=== PATIENT | female | born 1945 | race Caucasian/White ===

== ENCOUNTER 2019-01-15 06:15 | Inpatient (IN) | payer MEDICARE, MEDICAID, SELFPAY ==
[2019-01-08 07:45] VITALS: BMI 24.6
[2019-01-15] VITALS (19 sets, daily range): BP systolic 100–170; BP diastolic 56–91; PULSE 75–101; RESP 11–20; TEMP 36.2–37.1; O2SAT 92–100; BMI 24.0
--- NOTE | 2019-01-15 | DI.RAD.S_ITS ---
PROCEDURE: XR LUMBAR SPINE 2-3V INDICATIONS: L2-3, L3-4 TLIF TECHNIQUE: 2 views of the lumbar spine were acquired. COMPARISON: [facility], , L-SPINE 2-3 VIEWS, 10/19/2017, 8:40. FINDINGS: Bones: 5 [id number] vertebrae are present. There is normal bony alignment maintained L. by further extension of previously present posterior spine fusion, previously crossing from L4-S1 and now crossing from L2-S1. Interbody cage disc prosthesis devices appear in normal position at L2-3, and L3-4 in addition to the previously present stable appearing disc prosthesis devices at L4-5 and L5-S1. No vertebral body compression fractures. No suspicious bony lesions. Soft tissues: Overlying bowel gas pattern is normal. No suspicious soft tissue calcifications. IMPRESSION: Normal alignment with posterior fusion having been expanded to encompass now L2-S1 with interbody disc cage prosthesis devices now extending from L2-3 through L5-S1. Dictated by: Molina Craft M.D. on 01/15/2019 at 12:53 Approved by: Molina Craft M.D. on 01/15/2019 at 12:56
[2019-01-15] MEDS: LACTATED RINGERS 1,000 ML 42 ML IV ×2 (07:15→09:47)
--- NOTE | 2019-01-15 07:41 | SUR.PREOP ---
Pt and daughter unsure of home medications, did not bring in any medication lists.
--- NOTE | 2019-01-15 07:43 | PM.PREOP ---
Pre-operative Note Interval Note History & Physical reviewed/Exam performed by Physician: Yes Changes to H&P: No
[2019-01-15] MEDS: CEFAZOLIN 2 GM/100 ML FROZ.PIGGY IV ×2 (07:54→15:55)
--- NOTE | 2019-01-15 08:23 | SUR.OPER ---
Prone on spine table, head in foam head support, padded chest and pelvic supports, gel pad at knees, lower legs supported by pillows; nipples, genitalia and toes free of pressure, arms secured on foam padded arm boards at <90 degrees abduction. Tape over blanket at thigh secured to table.
[2019-01-15] MEDS: BUPIVACAINE LIPOSOME 266 MG/20 ML VIAL INJ (08:30)
[2019-01-15] MEDS: BUPIVACAINE 0.25% MDV 30 ML INJ (08:32)
--- NOTE | 2019-01-15 08:33 | SUR.OPER ---
UPPER DENTURES IN LABELED CONTAINER TO PACU WITH PATIENT
--- NOTE | 2019-01-15 12:17 | P.OP_ITS ---
Operative Date/Time/Diagnoses Date of procedure: 01/15/19 Time of procedure: 08:08 Pre-op diagnosis: 1. L2-3, L3-4, L4-5, L5-S1 spinal stenosis 2. L2-3, L3-4, L4-5, L5-S1 spondylosis with radiculopathy 3. Hx of L4-5, L5-S1 fusion with hardware loosening Post-op diagnosis: same Procedure & Clinicians Procedure: 1. L2-3, L3-4 posterolateral and posterior interbody fusion 2. L2-3, L3-4 posterior interbody cage placement 3. L4-S1 posterior segmental instrumentation removal 4. L4-5, L5-S1 revision laminectomy with exploration of fusion 5. L2-3, L3-4, L4-5, L5-S1 posterior segmental instrumentation with pedicle screw placement 6. L4-5 posterolatearl fusion 7. [place] of bone marrow from iliac crest through a separate incision 8. Utilization of microsurgical technique and operating microscope Same procedure as scheduled: Yes Indications: Patient has been having chronic back pain and worsening lumbar radiculopathy. Patient had previous fusion with temporary relief of her symptoms and progressive worsening of her pain over the last 6 months. Patient responded well to injection with temporary pain relief in the area cephalad to the previous fusion. Patient failed multiple conservative management with worsening pain weakness and numbness in her lower extremity. Patient has been having difficulty performing activity of daily living. After discussing risks benefits of treatment options, patient elected proceed with surgery. Surgeon: Angie Bhatt Brand Marketing Manager: Gege Rose Click Yes if Unassisted: No Anesthesia Type: General Operative Notes Closure Type: primary Specimen(s): none sent Prosthetic devices, grafts, tissues, transplants, or devices: Globus Revolve screws, Rise cages Applied: catheter Estimated Blood Loss (mL): 150 Blood products transfused: none Procedure in detail: Patient was seen in the preoperative area. Risks and benefits of the surgery was discussed with the patient. Informed consent was obtained from the patient and placed in the chart. Surgical site was marked. Patient was taken to the operative room. General anesthesia was administered. Prophylactic antibiotic was given to the patient less than 30 min before the incision was made. Patient was placed into a prone position on the Rob table. Patient's back was then prepped and draped in the sterile fashion. Time- out was performed at this time. Using patient's previous scar incision was made over the L4-5 L5-S1 interval on the left side. Fascia was incised in line with skin incision. Patient's previously placed hardware over the L4-5 L5-S1 level was identified by dissecting down to the level the hardware using a Bovie and a Bustamante. The locking caps which was removed using globus screwdriver. The locking rubens was then removed from the tulips of the pedicle screws using a Lionel. The pedicle scr ews were then removed using the screwdriver. The left L4 pedicle screw was found to be loose. The Globus and MARS retractors was then placed into the wound and docked onto the L2 and L3 lamina using C-arm guidance. Using microsurgical technique and operating microscope a laminectomy facetectomy was performed by removing the L2 and L3 lamina and the L2-3 L3-4 facet. The disc space at L2-3 L3-4 level was identified next. And a total diskectomy was performed at L2-3 L3-4 level. The endplates were decorticated using a rasp and shaver. The total diskectomy and decortication was performed at L2-3 L3-4 level in order to to accomplish a L2-3 L3-4 fusion. The local bone from the laminectomy and facetectomy was saved for local bone grafting. After the total diskectomy and decortication was c ompleted, Globus viacell bone graft material was combined with local bone that was harvested earlier. At this time, a separate skin is incision was made over the iliac crest. A Jamshidi needle was inserted into the iliac crest through a separate skin incision. 5 cc of bone marrow aspiration was obtained through the separate skin incision using a Jamshidi needle from the iliac crest. The bone marrow aspiration was combined with local bone and the via cell bone grafting material. The bone grafting material was placed into the L2-3 L3-4 interbody space along with a expandable cage. The cage was expanded to its maximum height using the torque limiting screwdriver. At this time a mirror image incision was made on the right side. The fascia was incised in line with the skin incision. Patient's previously placed hardware on the right side was then removed in the same fashion as it was on the left side. The hardware was also found to have good purchase. The fusion mass on the right side was exposed by performing a right-sided hemilaminectomy at L4-5 L5-S1 level. The hemilaminectomy was performed using the Kerrison rongeur to undercut the lamina as well removing additional epidural scar tissue for purpose of decompressing the epidural space. The fusion mass was explored and was found have visible motion at L4-5 indicating pseudoarthrosis. The L5-S1 level was found to be solid without motion. Globus MARS retractor was inserted and docked onto the L2-3 L3-4 L4-5 posterolateral gutter. Using the power drill, posterior-lateral decortication was performed at L2-3 L3-4 L4-5 level until bleeding cortical bone was identified. The remaining bone grafting material was placed into the L2-3 L3-4 L4-5 posterior lateral gutter he order to accomplish posterolateral fusion at the L2-3 L3-4 L4-5 level. Using the double C-arm technique, pedicle screws were placed into the L2-L3-L4-L5 and S1 pedicles bilaterally. This was done by placing the Jamshidi needle into the pedicles, then placing the guidewires over the Jamshidi needle, and finally placing the cannulated screws over the guidewires bilaterally. After the pedicle screws were placed, 2 titanium rods was locked into the heads of the pedicle screws using locking caps and torque limiting screwdriver. After all the hardware was placed, and confirmed with AP and lateral C-arm imaging, the wound was then irrigated with sterile normal saline and packed with Ray-Freddie gauze for 3 min to accomplish hemostasis. After the gauze was removed the deep fascia was closed with #1 Vicryl suture. The subcutaneous layer was closed with 2-0 Vicryl. The skin was closed with skin robert. Patient tolerated the procedure well. There were no complications. Complications: none Condition: stable Disposition: PACU Plan for aftercare: Admit to inpatient hospital
[2019-01-15] MEDS: HYDROMORPHONE 2 MG INJ 0.5 MG IV ×4 (13:00→13:15)
--- NOTE | 2019-01-15 14:09 | SUR.PHASEI ---
1356: Pt brought up to the Acute Care Floor and an updated bedside report given to ZORAN Dueñas. Despite pain medications given in PACU, Pt still appears to be having surgical pain. Blood Sugar checked at 1337 and was 204. Pt's VS checked upon transfer to Acute Care Floor and Pt hemodynamically stable. Pt reports her daughter is here, belongings brought to Pt in Room 217 and dentures placed on the counter in room.
[2019-01-15] MEDS: HYDROMORPHONE 0.5 MG INJ IV ×2 (14:37→20:39)
[2019-01-15] MEDS: SODIUM CHLORIDE 0.9% 1,000 ML 100 ML IV (14:37)
--- NOTE | 2019-01-15 14:47 | PC.NURSE ---
Pt awake, restless moaning in pain, Flacc of 7, given 0.5mg ivp dilaudid. Assisted to right side. Bed alarm on, family at bedside.
[2019-01-15] MEDS: OXYCODONE IR 5 MG TABLET 10 MG PO ×2 (15:34→19:08)
[2019-01-15] MEDS: hydrOXYzine pamoate 25 MG CAPSULE PO ×2 (15:34→19:08)
--- NOTE | 2019-01-15 16:52 | PC.NURSE ---
Addendum entered by Melissa Palacios R.N. 01/15/19 22:49: Mike continues to be confused tonight, oriented to place & time but forgetful to events & medications. She keeps asking did I get... but then trails off & then does not finish sentence, I talked with her for a while to try & figure out what she was asking about & she could not verbalize what she needed. Answering few other questions appropriately, knows she is in the hospital and that she had back surgery. Reported breakthrough pain tonight when oxycodone not available due to prn schedule, IV Dilaudid given. Since then she has been dozing intermittently, no facial grimace, extremities relaxed. VS remain stable. Repositioned q1-2 hours for comfort. Original Note: Post-op notes: Mike is awake, grawgy, appears sedated, confused to details & forgetful to some events. Reporting back pain really really bad, rated at 10/10. Ice pack placed, medicated with Oxycodone. She was able to sit up & take small bites of pudding & drink h2o. Assisted to reposition uoxu-do-anef 4 times in last 2 hours, reporting cannot get comfortable. Now on left side with pillows to support back, right arm and in between knees, finally dozing intermittently. Back drsg leaking small spots of sero-sang onto linen from middle of barrier drsgs where they join, adhesive rolled onto itself. Drsg reinforced with 4x4's and 3rd barrier drsg to center of surgical site, reinforced with paper tape. Daughter visiting, said she will probably leave for the night. Fall precautions in place, bed alarm active for safety.
[2019-01-15] MEDS: CHLORTHALIDONE 25 MG TABLET 12.5 MG PO (19:06)
[2019-01-15] MEDS: AMLODIPINE 5 MG TABLET 10 MG PO (19:07)
[2019-01-15] MEDS: FERROUS SULFATE 325 MG TABLET PO (19:07)
[2019-01-15] MEDS: LOVASTATIN 20 MG TABLET PO (19:07)
[2019-01-15] MEDS: CARVEDILOL 25 MG TABLET PO (20:39)
[2019-01-15] MEDS: GABAPENTIN 400 MG CAPSULE PO (20:40)
[2019-01-15] MEDS: DOCUSATE 100 MG CAPSULE PO (20:40)
[2019-01-15] MEDS: SENNOSIDES 8.6 MG TABLET 17.2 MG PO (20:40)
[2019-01-15] MEDS: METFORMIN HCL 500 MG TABLET PO (20:40)
[2019-01-16] VITALS (7 sets, daily range): BP systolic 105–134; BP diastolic 46–76; PULSE 83–108; RESP 16–20; TEMP 35.9–37; O2SAT 94–98
[2019-01-16] MEDS: OXYCODONE IR 5 MG TABLET 10 MG PO ×5 (00:31→15:55)
[2019-01-16] MEDS: SODIUM CHLORIDE 0.9% 1,000 ML 100 ML IV (00:33)
[2019-01-16] MEDS: CEFAZOLIN 2 GM/100 ML FROZ.PIGGY IV (00:33)
--- NOTE | 2019-01-16 00:45 | PC.NURSE ---
Shift Note: Received pt from evening shift. Pt oriented to name, , age, place, situation, and year. Is able to make needs known while in room, reinforced teaching of call light and it's purpose. Pt reports the urge to urinate, educated on parks catheter that is in place emptying pt's bladder, assessed for kinks or dependent loops and found none. Bed alarm on for pt's safety as pt has not been up with PT yet and has a left foot drop. CMS is intact with positive pedal pulses, normal reported sensation by pt and movement of extremities. Medicated for 8/10 pain on numeric scale per DEC.
[2019-01-16] MEDS: HYDROMORPHONE 0.5 MG INJ IV (06:47)
--- NOTE | 2019-01-16 07:21 | PM.PNPO.1 ---
Subjective Date Patient Seen: 01/16/19 Interval history: Patient seen bedside s/p L2-3,L3-4 TLIF,L4-5,L5-S1 HWR,Explor fusion,Repeat Laminectomy, Reinsertion HWR L2-3,L3-4,L4-5,L5-S1 PSF w/Instrumentation by on 01/15/19. Patient is POD #1. She is confused this morning and complaining of pain. She has some baseline dementia, but appears to be more confused than normally. Exam Vital Signs (past 8 hours): - 01/15/19 23:50 01/16/19 06:46 Temperature 98.8 F 98.2 F Pulse Rate 98 H 90 Respiratory Rate 20 20 Blood Pressure 134/65 110/57 L Pulse Oximetry 99 96 Oxygen Delivery Method Room Air Oxygen Flow Rate 0 Narrative Exam Narrative: Well-developed, well-nourished, no acute distress. Mildly confused and repetitive, but knows where she is and what procedure that she had done. Dressing on lumbar spine is clean, dry, and intact with no signs of drainage. Minimal erythema and generalized swelling around the surgical site. Neurovascularly intact in bilateral lower extremities with soft and compressible calves. Range of motion intact bilateral lower extremities. Assessment & Plan Post-op Postoperative Procedures Operation Date: 01/15/19 07:45 Actual Procedures Side Surgeon p L2-3,L3-4 TLIF,L4-5,L5-S1 HWR,Explor fusion,Repeat Laminectomy, Reinsertion HWR L2-3,L3-4,L4-5,L5-S1 PSF w/Instru. Not Applicable Angie Bhatt MD 1. POD #1 s/p above procedure-avoid IV dilaudid as this can increase confusion. Add oral steroid burst to help with pain. Up with PT/OT. Dispo-pending on pain control and movement with PT, maybe in 2-3 days. Quality VTE Deep Vein Thrombosis/Pulmonary Embolism Present on Admission: No
[2019-01-16] MEDS: ACETAMINOPHEN 325 MG TABLET 650 MG PO ×2 (08:06→14:36)
[2019-01-16] MEDS: GABAPENTIN 400 MG CAPSULE PO (08:06)
[2019-01-16] MEDS: DOCUSATE 100 MG CAPSULE PO (08:06)
[2019-01-16] MEDS: hydrOXYzine pamoate 25 MG CAPSULE PO ×2 (08:06→12:24)
[2019-01-16] MEDS: CARVEDILOL 25 MG TABLET PO (08:07)
[2019-01-16] MEDS: METFORMIN HCL 500 MG TABLET PO (08:07)
[2019-01-16] MEDS: DEXAMETHASONE 4 MG TABLET 8 MG PO (08:07)
--- NOTE | 2019-01-16 13:00 | PT.IIE ---
Current Diagnoses Other spondylosis with radiculopathy, lumbar region (01/15/19) Spinal stenosis, lumbar region without neurogenic claudication (01/15/19) Spinal stenosis, lumbar region with neurogenic claudication (01/15/19) Arthrodesis status (01/15/19) Surgery Performed Operation Date: 01/15/19 07:45 Actual Procedures p L2-3,L3-4 TLIF,L4-5,L5-S1 HWR,Explor fusion,Repeat Laminectomy, Reinsertion HWR L2-3,L3-4,L4-5,L5-S1 PSF w/Instru.(Not Applicable) - Angie Bhatt MD Surgical History (Last Updated 01/08/19 @ 10:13 by Tawanna Zarate, RN) History of lumbar fusion (Acute 10/19/17) History of removal of retained hardware (Acute) Hx of appendectomy (Acute) S/P foot surgery, left (Acute ~2012) Status post bilateral cataract extraction (Acute) Medical History (Last Updated 01/08/19 @ 10:14 by Tawanna Zarate RN) Anemia (Acute) Anxiety (Acute) CVA (cerebral vascular accident) (Acute ~2007) Chronic bilateral low back pain with bilateral sciatica (Acute) Diabetes (Acute) Fall from ground level (Acute ~12/2017) H/O ETOH abuse (Acute) H/O: hysterectomy (Acute) Hallux valgus of left foot (Acute 03/19/13) Hypercalcemia (Acute) Hyponatremia (Acute) Insomnia (Acute) Left foot drop (Acute) Mixed stress and urge urinary incontinence (Acute) Seasonal allergies (Acute) Sepsis (Acute ~2012) Spastic hemiplegia of left nondominant side due to infarction of brain (Acute) T12 compression fracture (Acute) TIA (transient ischemic attack) (Acute ~2015) Tingling (Acute) Vitamin D deficiency (Acute) Physical Therapy Inpatient Evaluation/Re-Eval M1 PT/OT-IP Prior Functional Status Start: 01/16/19 13:50 Freq: NEEDED Status: Active Protocol: Document 01/16/19 13:00 AB (Rec: 01/16/19 14:12 AB [id number]) Medical Review Prior Functional Status Medical History Reviewed Yes Communication with confusion but able to make needs known; pt also is sleepy Mobility and Gait pt stated that she is modified independent with all mobilities and ambulation using 4WW Social History Household Members none Living Arrangements Apartment/Condo Number of Floors (Floors) One Floor Number of Stairs To Enter/Railing? has an elevator to get inside the apartment Home Environment Standard Height Toilet Walk in Shower Home Equipment Four Wheel Walker Shower Seat with Backrest Hand Held Shower Grab Bars Near Toilet Grab Bars In Shower Employment Status Retired Additional Social History Comment pt has a caregiver that comes in 4 hours/daily for 4x/week and assists her with house chores, showers and for appointments M2 PT-IP Current Condition Start: 01/16/19 13:50 Freq: NEEDED Status: Active Protocol: Document 01/16/19 13:00 AB (Rec: 01/16/19 14:12 AB [id number]) Physical Therapy Current Condition Current Condition Evaluation Date 01/16/19 Treatment Diagnosis s/p L2-4 fusion L4-S1 lami; difficulty in walking Onset Date 01/15/19 Precautions Lumbar Precautions Log Roll No Twisting Limit Bending Lifting Restriction of 10 lbs Gait Belt above Incisional Area Other Precautions falls M3 PT-IP Subjective Start: 01/16/19 13:50 Freq: NEEDED Status: Active Protocol: Document 01/16/19 13:00 AB (Rec: 01/16/19 14:12 AB [id number]) Subjective Physical Therapy Visit Type Type Initial Evaluation Visit Start Time 13:00 Visit Stop Time 13:40 Total Visit Minutes 40 Number of CRICKET COACH Visits 0 Physical Therapy Visit Comments Patient Comments stated that she is sleepy Therapy Pain Assessment Pain When Pain Assessed At Rest Pain Present Pain Present Pain Reported Location Back Intensity 7 Scale Used Numeric (1 - 10) Pain Management Techniques Re-positioning Timing of Activity with Medications M4 PT-IP Mobility and Gait Start: 01/16/19 13:50 Freq: NEEDED Status: Active Protocol: Document 01/16/19 13:00 AB (Rec: 01/16/19 14:12 AB [id number]) PT-Bed Mobility Assessment Rolling Type of Rolling Log Rolling Level of Assist Maximal Assistance 1 Person Assistance Supine to Sit Supine to Sit Maximum Assistance 1 Person Assistance Scooting Scooting to Edge of Bed Maximum Assistance PT-Transfer Assessment Sit to and From Stand Sit to and from Stand Maximum Assistance 1 Person Assistance Use of Upper Extremities Equipment Transfer Assistive Device 4 Wheeled Walker Orthotic/Prosthetic Devices or Brace: No Transfers Transfer Destination Chair Transfer Technique Stand Step Pivot Transfer Ability Level of Assist Maximum Assistance 1 Person Assistance Use of Upper Extremities Comments Mobility Comments pt stated that she only uses a 4WW for transfers/ambulation. pt has decreasre safety awareness and is impulsive. requires max cues for safety. pt also tends to perseverate into things and has to require redirection to focus on task at hand. Pt with (+) L knee buckling during standing and transfers. pt also tends to let go of 4WW during transfers to reach to chair's armrest. Gait Assessment Comments Gait Comments unable at this time. PT-Balance Assessment Sitting Balance and Reactions Static Sitting Balance Ability Good Dynamic Sitting Balance Ability Fair Standing Balance and Reactions Static Standing Balance Ability Poor Dynamic Standing Balance Ability Poor Device Used 4WW M5 PT-IP Objective Assessments Start: 01/16/19 13:50 Freq: NEEDED Status: Active Protocol: Document 01/16/19 13:00 AB (Rec: 01/16/19 14:12 AB [id number]) Orientation Orientation/Cognition Level of Alertness Confusional State Orientation Name Situation Language Function Ability Hard of Hearing Safety Awareness Decreased Safety Awareness Memory Description Short 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 Gross Range of Motion Lower Extremity ROM Assessment Bilaterally Impaired Impairments B ankle DF tightness Strength Lower Extremity Strength Assessment Bilaterally Impaired Comments Strength Comments LLE: 3+/5 RLE 4-/5 M6 PT-IP Treatment Start: 01/16/19 13:50 Freq: NEEDED Status: Active Protocol: Document 01/16/19 13:00 AB (Rec: 01/16/19 14:12 AB [id number]) Physical Therapy Treatment Education Education Provided Precautions Weight Bearing Status Post-Op Packet Safety M7 PT-IP Assessment and Plan Start: 01/16/19 13:50 Freq: NEEDED Status: Active Protocol: Document 01/16/19 13:00 AB (Rec: 01/16/19 14:12 AB [id number]) PT Summary Assessment and Plan Potential Rehabilitation Potential Fair Status of Condition at Evaluation Evolving Summary Impairments Pain ROM Strength Balance Coordination Sensation Tone Cognition Bed Mobility Transfers Gait Activity Tolerance Assessment Summary pt requiring max A with bed mobility and transfers and unable to ambulate at this time. pt will be needing 24/7 assist and SNF rehab is recommended. Goals Bed Mobility Goal Minimal Assistance Transfer Goal Minimal Assistance Front Wheeled Walker Four Wheeled Walker Gait Goal Minimal Assistance Front Wheel Walker Four Wheel Walker Gait Distance 100 Days to Meet Goals 5 Frequency of Treatment Frequency Of Treatment Twice a Day Treatment Plan Physical Therapy Treatment Plan Bed Mobility Training Transfer Training Gait Training Therapeutic Exercise Balance Retraining Post Op Education Discharge Planning Hot or Cold Pack Neuromuscular Re-ed Coordination Retraining Manual Therapy Other Recommendations and Next Treatment ambulation Focus Recommendations To Nursing Amount of Assist Needed 2 Person Assist Discharge Recommendations PT Discharge Recommendations SNF Rehab
--- NOTE | 2019-01-16 13:25 | OT.IP.EVAL ---
Current Diagnoses Other spondylosis with radiculopathy, lumbar region (01/15/19) Spinal stenosis, lumbar region without neurogenic claudication (01/15/19) Spinal stenosis, lumbar region with neurogenic claudication (01/15/19) Arthrodesis status (01/15/19) Surgery Performed Operation Date: 01/15/19 07:45 Actual Procedures p L2-3,L3-4 TLIF,L4-5,L5-S1 HWR,Explor fusion,Repeat Laminectomy, Reinsertion HWR L2-3,L3-4,L4-5,L5-S1 PSF w/Instru.(Not Applicable) - Angie Bhatt MD Past Medical History (Last Updated 01/08/19 @ 10:14 by Tawanna Zarate RN) Anemia (Acute) Anxiety (Acute) CVA (cerebral vascular accident) (Acute ~2007) Chronic bilateral low back pain with bilateral sciatica (Acute) Diabetes (Acute) Fall from ground level (Acute ~12/2017) H/O ETOH abuse (Acute) H/O: hysterectomy (Acute) Hallux valgus of left foot (Acute 03/19/13) Hypercalcemia (Acute) Hyponatremia (Acute) Insomnia (Acute) Left foot drop (Acute) Mixed stress and urge urinary incontinence (Acute) Seasonal allergies (Acute) Sepsis (Acute ~2012) Spastic hemiplegia of left nondominant side due to infarction of brain (Acute) T12 compression fracture (Acute) TIA (transient ischemic attack) (Acute ~2015) Tingling (Acute) Vitamin D deficiency (Acute) Surgical History (Last Updated 01/08/19 @ 10:13 by Tawanna Zarate RN) History of lumbar fusion (Acute 10/19/17) History of removal of retained hardware (Acute) Hx of appendectomy (Acute) S/P foot surgery, left (Acute ~2012) Status post bilateral cataract extraction (Acute) Occupational Therapy Inpatient Evaluation/Re-Eval M1 PT/OT-IP Prior Functional Status Start: 01/16/19 13:50 Freq: NEEDED Status: Active Protocol: Document 01/16/19 13:25 PJM (Rec: 01/16/19 17:12 JANINEM [id number]) Medical Review Prior Functional Status Medical History Reviewed Yes Diet/Fluid Consistency Regular Communication WFL Mobility and Gait Pt stated that she is modified independent with all mobilities and ambulation using 4WW Activities of Daily Living and IADL's Pt stated she is independent with eating, grooming, dressing and toileting at home . She has caregiver assist 4 days week from 8-11 AM. Her caregiver assists with cleaning, laundry, some meal prep, showering, and transport to grocery store and MD appointments. Prior Functional Level (Other details) Pt states she manages her owm medications and finances. She states her daughter is a cargiver for another client in same apartment [employer] and checks in on pt during day as work schedule permits. Social History Household Members none Living Arrangements Apartment/Condo Number of Floors (Floors) One Floor Number of Stairs To Enter/Railing? pt has elevator access to her apt Home Environment Standard Height Toilet Walk in Shower Home Equipment Four Wheel Walker Quad Cane Shower Seat with Backrest Hand Held Shower Grab Bars Near Toilet Grab Bars In Shower Employment Status Retired M2 OT-IP Current Condition Start: 01/16/19 16:34 Freq: Status: Active Protocol: Document 01/16/19 13:25 PJM (Rec: 01/16/19 17:12 PJ [id number]) Occupational Therapy Current Condition Current Condition Evaluation Date 01/16/19 Treatment Diagnosis decreased ADLS, mobility, confusion s/p elective L2-S1 PLIF, L4-S1 lami Diagnosis Onset Date 01/15/19 Post Operative Precautions Lumbar Precautions Log Roll No Twisting Limit Bending Lifting Restriction of 10 lbs Gait Belt above Incisional Area Other Precautions bed/chair alarm due to confusion, impulsivity M3 OT- IP Subjective and Pain Start: 01/16/19 16:34 Freq: Status: Active Protocol: Document 01/16/19 13:25 PJM (Rec: 01/16/19 17:12 PJ [id number]) OT- Subjective Occupational Therapy Visit Type Type Initial Evaluation Visit Start Time 14:58 Visit Stop Time 13:25 Total Visit Minutes 27 Occupational Therapy Visit Comments Patient Comments The doctor told me this surgery would be easier than my last one, but it sure hurts a lot today. Patient/Caregiver Goals to go home and get back to normal. OT Pain Assessment Pain When Pain Assessed After Treatment Pain Present Pain Present Pain Reported FLACC Pain Scale Face Occasional grimace/frown Legs Uneasy, restless, tense Activity Quiet, moves easily Cry No cry (awake or asleep) Consolability Reassurable with touch FLACC Total 3 Location Back Intensity 9 Scale Used Numeric (1 - 10) Description Aching Acute M4 OT- IP ADL's Start: 01/16/19 16:34 Freq: Status: Active Protocol: Document 01/16/19 13:25 PJM (Rec: 01/16/19 17:[address] [facility] [id number]) OT [id number] General Evaluation Self-Feeding Ability Independent Areas Needing Assistance Opening Containers OT ADL-Grooming General Evaluation Grooming Ability Standby Assistance Areas Needing Assistance Combing/Brushing Hair Face Washing OT ADL-Oral Care Comments Oral Care Comments did not occur this session, to be assessed OT ADL-Dressing General Eval Lower Body Dressing Ability Total Assistance Areas Needing Assistance Underpants/Brief Pants/Shorts Socks Shoes Comments OT Dressing Comments pt states she normally bends over to get socks and shoes on ; decreased insight into new lumbar precautions OT ADL-Toileting General Evaluation Toileting Ability Total Assistance Areas Needing Assistance Empty Catheter or Colostomy Comments OT Toileting Comments parks still in place OT ADL-Bathing Comments OT Bathing Comments to be assessed as activity tolerance improves M5 OT- IP IADL's Start: 01/16/19 16:34 Freq: Status: Active Protocol: Document 01/16/19 13:25 PJM (Rec: 01/16/19 17:[address] [facility] [id number]) OT-Instrumental Activities of Daily Living Deficits IADL Deficits Identified Deficits Home Safety Awareness Awareness of Need for Assistance at Home Decreased Awareness Ability to Problem Solve Emergency Unable to Problem Solve Situations Medication Management Medication Management Comments pt states she normally manages her own meds on 3 days caregiver is not present; her caregiver or daughter assist with glucose testing and insulin shots when they are present; no family here to confirm Money Management Money Management Comments pt states she manages her own finances; no family here to confirm Meal Preparation Meal Preparation Caregiver Provides Assist Meal Preparation Comments cargiver provides some assist and pt microwaves some meals Hoist Mechanic Hoist Mechanic Caregiver Provides Assist Hoist Mechanic Comments caregiver 4 days/week, 3 hours /day Driving Driving Caregiver Provides Assist Driving Comments pt no longer drives M6 OT- IP Functional Cognition Start: 01/16/19 16:34 Freq: Status: Active Protocol: Document 01/16/19 13:25 PJM (Rec: 01/16/19 17:12 PJM [id number]) Cognitive Factors Limiting Selfcare Function Cognitive Ability Level of Alertness Confusional State Drowsy Patient Orientation Name Month Year Attention Span Ability Capable of Focused Attention Ability to Follow Commands Able to Follow One Step Commands with Increased Time Memory Description Short Term Impaired Safety Awareness Decreased Recall of Precautions Decreased Ability to Apply Precautions Underestimates Need for Assistance Problem Solving Ability Unable to Identify Errors Needs Assist to Identify Solutions Executive Function Ability Unable to Make Plans Unable to Remember Details Abstract Thinking Ability Unable to Draw Logical Conclusions Cognitive Comments Cognitive Assessment Comments Per chart notes, pt has hx of mild dementia. Pt recalls 0/ 3 spine precautions and has significantly decreased insight into how these precautions will her impact her ability to complete ADLS at home. Pt greatly overestimates her own abilities at present. OT- Vision and Hearing OT- Hearing Assessment OT- Hearing Assessment WFL OT- Vision Assessment Visual Acuity Glasses All The Time Visual Attentiveness WFL Occular Pursuits Impaired Horizontal Diplopia Absent Visual Spacial Neglect Left Vision Assessment Comments B nystagmus noted during horizontal ocular pursuits. Pt unable to follow directions for visual field testing but appears to have L visual spatial neglect. M7 OT- IP Mobility and Balance Start: 01/16/19 16:34 Freq: Status: Active Protocol: Document 01/16/19 13:25 PJM (Rec: 01/16/19 17:[address] [facility] [id number]) OT-Transfer Assessment Comments Mobility Comments pt seen up in chair this session; see P.T. notes OT- Gait Assessment Comments Gait Ability Comments Pt unable to ambulate with P.T. during their assessment with L knee buckling during transfer to the chair. OT- Balance Assessment Comments Other Balance Tests/Deviations/Treatment see P.T. notes : M8 OT- IP Objective Assessments Start: 01/16/19 16:34 Freq: Status: Active Protocol: Document 01/16/19 13:25 PJM (Rec: 01/16/19 17:12 PJ [id number]) OT Gross Range of Motion Upper Extremity Range of Motion Assessment Left Impaired ROM Impairments RUE WFL except shoulder scaption limited to about 110 degrees by stiffness. LUE AAROM: Shldr flex to 90 degrees, abd to 80 deg, elbow WFL after tone inhibition, active supination to neutral only (AAROM WFL), active wrist flex/ext to 20 degrees (AAROM to 45 degrees), AAROM for finger flex ext WFL after tone inhibition. OT Strength Upper Extremity Strength Assessment Bilaterally Impaired Shoulder R 4-/5 flex/abd L 3-/5 flex/abd Elbow R 4/5 flex/ext L 3-/5 flex/ext due to increased tone Forearm R 4-/5 L 3/5 pron, 3-/5 sup due to increased tone Wrist R 4-/5 L 3-/5 Hand R 4-/5 L 2+ to 3-/5 with fluctuating flexor tone Hand Plant Chief Strength Hand Dominance Right Comments Strength Comments significant LUE spastic hemiparesis noted from stroke 2008 OT- Coordination Assessment Upper Extremity Finger to Nose Test Left UE Impaired Finger Tapping Test Left UE Impaired Comments Coordination Comments Pt can use L hand as gross assist to stabilize objects ~ 50% of the time OT-Muscle Tone Assessment Muscle Tone WNL No Muscle Tone Location Left Upper Extremity Type of Tone Hypertonicity Severity of Tone Moderate [place] Grade Scale Grade 2 Comments Muscle Tone Comments Pt has moderately increased tone in shoulder girdle, elbow flexors/extensors, pronators, wrist and finger flexors OT Sensation Assessment Location Left Arm Light Touch Impaired Proprioception (Position) Impaired Comments Summary Comments Impaired sensation in LUE and hand as noted above Edema Edema Absent M9 OT- IP Assessment and Plan Start: 01/16/19 16:34 Freq: Status: Active Protocol: Document 01/16/19 13:25 PJM (Rec: 01/16/19 17:12 PJM [id number]) OT Summary Assessment and Plan Potential Rehabilitation Potential Good Analytic Complexity at Evaluation Moderate Summary OT Impairments Pain Range of Motion Strength Balance Coordination Sensation Tone Functional Cognition Functional Mobility Self-Feeding Grooming Dressing Toileting Bathing Toilet Transfers Shower Transfers Assessment Summary Moderate complexity OT assessment completed due to pt's prior hx of stroke with residual L spastic hemiparesis requiring additional time for neuro exam. Pt too confused to fully follow directions for visual field and sensory testing this session. Pt currently has performance deficits in all functional cognition, is not fully oriented and does not recall any of her lumbar spine precautions. She has low activity tolerance and was unable to ambulate today with P.T. with L knee buckled during transfer. Pt also has significant performance deficits in standing grooming, dressing, bathing and toileting. She is not safe to return home with caregiver 12 hrs/week. She currently needs 24 hr assist for safety. Recommend SNF at d/c for further subacute rehab services Goals Self-Feeding Goal Independent Grooming Goal Standby Assistance Dressing Goal Minimal Assistance Toileting Goal Minimal Assistance Bathing Goal Moderate Assistance Toilet Transfer Goal Minimal Assistance Shower Transfer Goal Minimal Assistance Patient/Caregiver Education Goal Demonstrate Post-Op Precautions Demonstrate Energy Conservation and Pacing Days to Meet Goals 7 Frequency of Treatment Frequency Of Treatment Once a Day Treatment Plan OT Treatment Plan ADL Training Functional Mobility Patient/Family Education Discharge Planning Discharge Recommendations OT Discharge Recommendations SNF Rehab
--- NOTE | 2019-01-16 13:25 | CM.DANOTE ---
DCP/Assessment: Reviewed chart. Patient is a 73yr old female admitted [facility] spine surgery performed by Dr. Bhatt on 01-15-19. Primary payor is 1)Medicare 2)Medicaid. PCP is TEE Baez. Met with patient explained CM/SW role. Patient resting in bed at time of visit. Patient reports that she has not yet been up with PT. Patient complains of pain this AM. Patient reports that she resides alone and hopes to go home today? Patient does receive caregiver support 4 days per week through [employer]? Patient indicates that her hours are usually 3-4hrs per day. Patient unsure of the agency whom provides services. Patient believes that her CM is [facility]? Patient also reports that her daughter will be assisting her during recovery period. At this time notified patient that CM team would continue to follow for any d/c planning recommendations. Patient appreciative. P: Anticipate home when medically stable pending progress. JULIA Krueger Discharge Planning/Care Management CM Discharge Assessment Start: 01/16/19 13:16 Freq: Status: Active Protocol: Document 01/16/19 13:16 KJS (Rec: 01/16/19 13:25 KJS [id number]) Discharge Planning Assessment Assigned Hide Dropper JULIA Krueger Contact Information Kathya Copeland (family) Advance Directives? Yes: POLST Advance Directives on File Yes History Provided By Family Member Prior Living Arrangements Apartment/Condo Household Members none Type of transporation used prior to Relies on Others admit Independent with ADL's Yes Is patient alert and oriented? Yes Caregiver for Another No DME Already Rented / Owned FWW / Walker Cane Barriers to Discharge No Discharge Plan Home Whiteboard Updated in Patient Room with Yes name and ext. # of Hide Dropper Review Status In Process Please Provide Date Initial DC 01/16/19 Assessment Was Performed Next Review Type Continued Stay Review Pre-Anesthesia Assessment Start: 01/08/19 07:45 Freq: Status: Complete Protocol: Document 01/08/19 07:45 CAB (Rec: 01/08/19 08:53 CAB [id number]) Pre-Anesthesia Assessment Patient Information Reviewed Via Phone Assessment Assessment Completed With Patient Caregiver Diagnostic Results BMP/CMP CBC EKG Primary Care Provider Justine Martinez Seen Specialist in Last 12 Months Yes Specialist Seen Orthopedist Rn Sane Comment PCP note 12/28/18 scanned to record Primary Language Slovenian Cow Washer Required No Height 152.4 cm Weight 57.153 kg Body Mass Index (BMI) 24.6 Hearing Ability Normal Visual Assist Magnifying Glass Dentition Type Full- Upper Barriers to Learning None Hx Anesthesia Reactions No Hx Family Anesthesia Reaction No Hx Malignant Hyperthermia No Hx Blood Transfusions No Anesthesia Review Requested No 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 No Does patient have OATES/SOB No Hx Sleep Apnea No Currently Taking a Beta Monserrat Yes: Carvedilol Hx Chest Pain No Hx SOB No Hx Syncope or Dizziness Yes: Syncopal episode/glf [place], cardiac r/o Anti-Coagulant Therapy Yes: Aspirin 81mg-pt will check w/pcp if needed to hold Has a Textile Colorist Formulator No Cardiac Testing Yes: ECHO 01/02/19, Carotid US' 18 Hx Pacemaker/ICD No Pacemaker Rep Required? No Cardiac Clearance Received Not Applicable Diet Type At Home Regular dysphagia No Bladder Pattern Frequency Incontinent Urgency Urinary Catheter Present No Hx Urinary Self Catheterization No Diabetes Yes HgbA1C 5.8 Date 12/19/18 Patient No Lactating No Hx Drug Resistant Organism No Presence of External or Internal Medical No Devices Have you traveled outside the [facility] in the last 30 days? Marital Status / Lives With none Prior Living Arrangements Apartment/Condo Support System Caregiver Child/Children Does the Patient Have Assistance After Yes Surgery Patient Discharge Plan Description Return Home Feels Safe in Current Environment Yes Been Physically Hurt or Threatened By a No Person in Current Environment Do you have thoughts of harming yourself None or others? Are you currently considering suicide? No Do you have a plan to hurt yourself or No Plan others? Do You Have Any Spiritual Beliefs That No May Affect Your HC Choices? Do You Have Any Cultural Practices That No May Affect Your HC Choices? Spiritual Referral None Comment Rastafari Who Can We Speak to About Patient's Care Family, friends Identifying Code for Release of Patient Declines to issue Information Health Care Proxy/Next of Kin Kathya (daughter) Health Care Proxy Emergency Contact Name Kathya (daughter) Emergency Contact Advance Directives? POLST PAC Instructions Durable medical equipment Medications to take/avoid Nasal antibiotic No ETOH/petroleum product on skin DOS NPO Post-op transportation Pre-surgical wash Sensory aids Sturdy shoes/comfortable clothes Do not bring valuables and remove jewelry
[2019-01-16] MEDS: BUSPIRONE 5 MG TABLET PO (14:36)
[2019-01-16] MEDS: LORazepam 1 MG TABLET PO (14:36)
[2019-01-16] MEDS: DEXAMETHASONE 4 MG TABLET PO (16:09)
--- NOTE | 2019-01-16 18:22 | PC.NURSE ---
Addendum entered by Melissa Palacios R.N. 01/16/19 23:30: 2300: Patient slept from 1930 until 2199 when I woke her up to take her PM medications. She woke to light touch, immediately started saying I don't want that again! Talked to her in great length, for 20+ minutes about all the medications she had received prior, as it appears that the Ativan made her sleepy. She told me she thinks it is tuesday and today I am leaving, I attempted to reorient her to day/time but she would not believe me.e She is requesting not to be given that medication again. I told her several times that we would not give her Ativan again & I would pass it off in report to night RN. She continued to focus on the Ativan, saying repeatedly I don't trust you and I want to see all of my pills. I went through each medication with her, showing her package & pill. She refused to take any of her scheduled medications, even just regular tylenol or stool softeners, paranoid that I was giving her Ativan. At one point she said If anything happens to me, my daughter will investigate you. I assisted her to call her daughter Kathya on phone to help reorient her, Kathya did not answer her phone, I left vague message asking her to call SE nurse station back. All meds put back into drawer except for the 4 that were already out of packaging. When I went to leave she said well aren't you going to give me my medication? and I still need my pain meds, I told her that I was off shift and could not stay at bedside any longer and that the night nurse would come see her soon. Original Note: Evening notes: 1600: Mike awake, drowsy, requesting pain pills repeatedly, I spoke to her about pain mgmt plan & fear of overmedicating her. She said I hurt so bad though I need those. Even when nurse scanning & physically in room to give medication she repeatedly asked for pain pills. She is oriented to person, place & situation, forgetful of time/date. Speech clear, sometimes rambles & repeats sentences. Has slight left facial droop which is baseline for her, pupils equal/reactive. Medicated with 2 tabs oxycodone. Back drsg leaking small amt of sero-sang on linen, surgical drsg reinforced with barrier drsg & paper tape. Daughter here til about 1700 visiting but then told me she was leaving for the night. 1700: Patient was observed finally dozing in bed, slight facial grimace but she is much more relaxed than observed at 1600. Able to wake easily to voice, sitting up at 90 degrees & feeding self meal. CMS intact, able to move legs/feet, weakness to left extremities, left foot drop. Denies numbness to extremities, wearing foot SCD's.
[2019-01-17] MEDS: OXYCODONE IR 5 MG TABLET 10 MG PO ×5 (01:22→17:33)
[2019-01-17] MEDS: GABAPENTIN 400 MG CAPSULE PO ×3 (02:35→21:13)
[2019-01-17 04:30] VITALS: BP 149/83; PULSE 107; RESP 21; TEMP 36.6; O2SAT 99
[2019-01-17] MEDS: DEXAMETHASONE 4 MG TABLET PO (05:51)
[2019-01-17 08:00] VITALS: BP 136/77; PULSE 115; RESP 18; TEMP 36.4; O2SAT 96
[2019-01-17] MEDS: BUSPIRONE 5 MG TABLET PO ×3 (08:42→21:14)
[2019-01-17] MEDS: CARVEDILOL 25 MG TABLET PO ×2 (08:43→21:14)
[2019-01-17] MEDS: METFORMIN HCL 500 MG TABLET PO ×2 (08:43→21:13)
[2019-01-17] MEDS: BENAZEPRIL 20 MG TABLET PO ×2 (08:43→21:13)
[2019-01-17] MEDS: DOCUSATE 100 MG CAPSULE PO (08:46)
--- NOTE | 2019-01-17 08:54 | PM.PNPO.1 ---
Subjective Date Patient Seen: 01/17/19 Time Patient Seen: 08:54 Interval history: Hospital day 3, postop day 2 following L2-3, L3-4 posterior lateral fusion, L4 through S1 hardware removal, revision laminectomy and exploration of fusion; L2-3 through L5-S1 bilateral posterior screw fixation. patient states having some increased pain in the last 24 hours. She was started on dexamethasone 4 mg q.8h. Has been taking oxycodone 10 mg which is helping her pain. she was seen by PT/OT yesterday have a both of which are recommending SNF. Patient is desiring to go home. She does have a part-time caregiver that comes in a few days per week. She also has her daughter who lives upstairs as a caregiver that can help her. Still has Stern catheter in place. Exam Vital Signs (past 8 hours): - 01/17/19 04:30 01/17/19 08:00 Temperature 97.9 F 97.6 F Pulse Rate 107 H 115 H Respiratory Rate 21 18 Blood Pressure 149/83 H 136/77 Pulse Oximetry 99 96 Oxygen Delivery Method Room Air Oxygen Flow Rate 0 Narrative Exam Narrative: Alert, oriented. In discomfort in no acute distress lying in bed. back. Dressing to the lumbar area is dry without drainage or inflammation. Legs. No calf pain or swelling. Pulses symmetrical. Good sensation to touch the lower legs. Good strength on foot dorsiflexion plantar flexion. Assessment & Plan Post-op Postoperative Procedures Operation Date: 01/15/19 07:45 Actual Procedures Side Surgeon p L2-3,L3-4 TLIF,L4-5,L5-S1 HWR,Explor fusion,Repeat Laminectomy, Reinsertion HWR L2-3,L3-4,L4-5,L5-S1 PSF w/Instru. Not Applicable Angie Bhatt MD Plan: I did talk to the patient regarding options of discharge either to home with more assist such as home health versus SNF for few days before going home. Encouraged patient to try to be more active so we can get her Stern catheter out. she will work with PT today. anticipate discharge in the next 1-2 days if stable either to home or SNF. Quality VTE Deep Vein Thrombosis/Pulmonary Embolism Present on Admission: No
--- NOTE | 2019-01-17 10:55 | PT.IPTN ---
Current Diagnoses Other spondylosis with radiculopathy, lumbar region (01/15/19) Spinal stenosis, lumbar region without neurogenic claudication (01/15/19) Spinal stenosis, lumbar region with neurogenic claudication (01/15/19) Arthrodesis status (01/15/19) Surgery Performed Operation Date: 01/15/19 07:45 Actual Procedures p L2-3,L3-4 TLIF,L4-5,L5-S1 HWR,Explor fusion,Repeat Laminectomy, Reinsertion HWR L2-3,L3-4,L4-5,L5-S1 PSF w/Instru.(Not Applicable) - Angie Bhatt MD Physical Therapy Treatment Note M2 PT-IP Current Condition Start: 01/16/19 13:50 Freq: NEEDED Status: Active Protocol: Document 01/16/19 13:00 AB (Rec: 01/16/19 14:12 AB [id number]) Physical Therapy Current Condition Current Condition Evaluation Date 01/16/19 Treatment Diagnosis s/p L2-4 fusion L4-S1 lami; difficulty in walking Onset Date 01/15/19 Precautions Lumbar Precautions Log Roll No Twisting Limit Bending Lifting Restriction of 10 lbs Gait Belt above Incisional Area Other Precautions falls M3 PT-IP Subjective Start: 01/16/19 13:50 Freq: NEEDED Status: Active Protocol: Document 01/17/19 10:55 GGD (Rec: 01/17/19 11:14 GGD [email or web address]) Subjective Physical Therapy Visit Type Type Treatment Note Visit Start Time 10:30 Visit Stop Time 10:55 Total Visit Minutes 25 Number of CORROSION CONTROL FITTER Visits 1 Physical Therapy Visit Comments Patient Comments Pt states she is willing to work with therapy. Therapy Pain Assessment Pain When Pain Assessed At Rest Pain Present Pain Present Pain Reported Location Back Intensity 3 Scale Used Numeric (1 - 10) M4 PT-IP Mobility and Gait Start: 01/16/19 13:50 Freq: NEEDED Status: Active Protocol: Document 01/17/19 10:55 GGD (Rec: 01/17/19 11:14 GGD [email or web address]) PT-Bed Mobility Assessment Rolling Type of Rolling Log Rolling Roll to Right Level of Assist Moderate Assistance 1 Person Assistance Scooting Scooting to Edge of Bed Minimal Assistance PT-Transfer Assessment Sit to and From Stand Sit to and from Stand Minimal Assistance 1 Person Assistance Use of Upper Extremities Equipment Transfer Assistive Device Gait Belt Front Wheeled Walker Orthotic/Prosthetic Devices or Brace: No Transfers Transfer Destination Chair Transfer Ability Level of Assist Moderate Assistance 1 Person Assistance Use of Upper Extremities Gait Assessment Gait Gait Assistance Required: Minimum Assistance 1 Person Assist Distance (Feet) 30 Able to Maintain Weight Bearing Status Yes During Gait Assistive Devices Assistive Device Gait Belt Front Wheeled Walker Orthotic/Prosthetic Devices or Brace: No Gait Deviations General Gait Pattern Antalgic Decreased Stride Length Decreased Feet Clearance Step-to Gait Factors Limiting Gait Function Factors Limiting Gait Function Decreased Activity Tolerance Decreased Sensation Decreased Strength Difficulty Following Directions Pain Poor Balance Poor Safety Awareness M5 PT-IP Objective Assessments Start: 01/16/19 13:50 Freq: NEEDED Status: Active Protocol: Document 01/16/19 13:00 AB (Rec: 01/16/19 14:12 AB [id number]) Orientation Orientation/Cognition Level of Alertness Confusional State Orientation Name Situation Language Function Ability Hard of Hearing Safety Awareness Decreased Safety Awareness Memory Description Short Term Impaired Meeting/Event Planner Impaired Gross Range of Motion Lower Extremity ROM Assessment Bilaterally Impaired Impairments B ankle DF tightness Strength Lower Extremity Strength Assessment Bilaterally Impaired Comments Strength Comments LLE: 3+/5 RLE 4-/5 M6 PT-IP Treatment Start: 01/16/19 13:50 Freq: NEEDED Status: Active Protocol: Document 01/17/19 10:55 [email or web address] (Rec: 01/17/19 11:14 GGD [email or web address]) Physical Therapy Treatment Education Education Provided Precautions Safety M7 PT-IP Assessment and Plan Start: 01/16/19 13:50 Freq: NEEDED Status: Active Protocol: Document 01/17/19 10:55 [email or web address] (Rec: 01/17/19 11:14 GGD [email or web address]) PT Summary Assessment and Plan Summary Assessment Summary Pt need mod A for bed mobility and cues. She had difficultly follow cues and LBK precautions. She was able to ambulate, but was unsteady and needed min A. She will need 24/7 assist or SNF rehab. Frequency of Treatment Frequency Of Treatment Twice a Day Treatment Plan Physical Therapy Treatment Plan Bed Mobility Training Transfer Training Gait Training Therapeutic Exercise Balance Retraining Post Op Education Discharge Planning Hot or Cold Pack Neuromuscular Re-ed Coordination Retraining Manual Therapy Other Recommendations and Next Treatment ambulation Focus Recommendations To Nursing Amount of Assist Needed 2 Person Assist Discharge Recommendations PT Discharge Recommendations Home with 24/7 Assist SNF Rehab
[2019-01-17 11:00] VITALS: BP 140/70; PULSE 100; RESP 18; TEMP 36.6; O2SAT 96
--- NOTE | 2019-01-17 13:32 | PC.NURSE ---
Pt is anxious but appropriate, given percolone x2 for complaints of pain 8 and 9/10 discomfort. Dressing to back is cdi and pt is sitting up in her chair after working with physical therapy earlier. Working now with ot and will go back to bed shortly.
--- NOTE | 2019-01-17 13:59 | OT.IP.TRT ---
Current Diagnoses Other spondylosis with radiculopathy, lumbar region (01/15/19) Spinal stenosis, lumbar region without neurogenic claudication (01/15/19) Spinal stenosis, lumbar region with neurogenic claudication (01/15/19) Arthrodesis status (01/15/19) Surgery Performed Operation Date: 01/15/19 07:45 Actual Procedures p L2-3,L3-4 TLIF,L4-5,L5-S1 HWR,Explor fusion,Repeat Laminectomy, Reinsertion HWR L2-3,L3-4,L4-5,L5-S1 PSF w/Instru.(Not Applicable) - Angie Bhatt MD Occupational Therapy Treatment Note M2 OT-IP Current Condition Start: 01/16/19 16:34 Freq: Status: Active Protocol: Document 01/16/19 13:25 PJM (Rec: 01/16/19 17:12 PJM [email or web address]) Occupational Therapy Current Condition Current Condition Evaluation Date 01/16/19 Treatment Diagnosis decreased ADLS, mobility, confusion s/p elective L2-S1 PLIF, L4-S1 lami Diagnosis Onset Date 01/15/19 Post Operative Precautions Lumbar Precautions Log Roll No Twisting Limit Bending Lifting Restriction of 10 lbs Gait Belt above Incisional Area Other Precautions bed/chair alarm due to confusion, impulsivity M3 OT- IP Subjective and Pain Start: 01/16/19 16:34 Freq: Status: Active Protocol: Document 01/17/19 13:59 PJM (Rec: 01/17/19 15:28 PJM [email or web address]) OT- Subjective Occupational Therapy Visit Type Type Treatment Note Visit Start Time 13:15 Visit Stop Time 13:59 Total Visit Minutes 44 Notes Pt sitting up in recliner when therapist arrived, asking to change positions due to low back pain. Occupational Therapy Visit Comments Patient Comments My daughter can't be with me all the time at home because she works. I think I need to go to [facility] before I go home by myself. I have been there before Patient/Caregiver Goals to get strong enough to go home OT Pain Assessment Pain When Pain Assessed After Treatment Pain Present Pain Present Pain Reported FLACC Pain Scale Face Occasional grimace/frown Legs Uneasy, restless, tense Activity Squirming,shifting Cry Moans/whimpers/complains Consolability Reassurable with touch FLACC Total 5 Location Back Scale Used pt unable to rate pain on 10 point scale M4 OT- IP ADL's Start: 01/16/19 16:34 Freq: Status: Active Protocol: Document 01/17/19 13:59 PJM (Rec: 01/17/19 15:28 PJM [email or web address]) OT ADL-Grooming General Evaluation Grooming Ability Contact Guard Assistance Areas Needing Assistance Retrieving/Set-up of Grooming Items Combing/Brushing Hair Face Washing Comments OT Grooming Comments Pt stood at sink ~4 min with CGA for balance with FWW, then c/o my legs giving out and sat in chair for task completion. OT ADL-Oral Care General Eval Oral Care Ability Minimal Assistance Areas of Assistance Managing Dentures Retrieving/Set-Up of Items Devices Oral Care Devices Toothbrush Comments Oral Care Comments min assist to get packaging open for Efferdent tablet due to decreased standing balance and decreased L hand function OT ADL-Dressing General Eval Lower Body Dressing Ability Moderate Assistance Areas Needing Assistance Socks Assistive Devices Dressing Assistive Devices Embroidery Cutter Sock Aid Comments OT Dressing Comments Began education/practice with sanitation engineer to open and close velcro strap on diabetic shoe and to remove sock. Pt needs mod assist to use hard sock aid but was able to use L hand as assist with task. OT ADL-Toileting General Evaluation Toileting Ability Total Assistance Areas Needing Assistance Empty Catheter or Colostomy Comments OT Toileting Comments parks still in place M5 OT- IP IADL's Start: 01/16/19 16:34 Freq: Status: Active Protocol: Document 01/16/19 13:25 PJM (Rec: 01/16/19 17:12 PJ [email or web address]) OT-Instrumental Activities of Daily Living Deficits IADL Deficits Identified Deficits Home Safety Awareness Awareness of Need for Assistance at Home Decreased Awareness Ability to Problem Solve Emergency Unable to Problem Solve Situations Medication Management Medication Management Comments pt states she normally manages her own meds on 3 days caregiver is not present; her caregiver or daughter assist with glucose testing and insulin shots when they are present; no family here to confirm Money Management Money Management Comments pt states she manages her own finances; no family here to confirm Meal Preparation Meal Preparation Caregiver Provides Assist Meal Preparation Comments caregiver provides some assist and pt microwaves some meals Investment Executive Investment Executive Caregiver Provides Assist Investment Executive Comments caregiver 4 days/week, 3 hours /day Driving Driving Caregiver Provides Assist Driving Comments pt no longer drives M6 OT- IP Functional Cognition Start: 01/16/19 16:34 Freq: Status: Active Protocol: Document 01/17/19 13:59 PJM (Rec: 01/17/19 15:28 PJ [email or web address]) Cognitive Factors Limiting Selfcare Function Cognitive Ability Level of Alertness Alert Attention Span Ability Capable of Focused Attention Capable of Sustained Attention Ability to Follow Commands Able to Follow One Step Commands Memory Description Short Term Impaired Safety Awareness Decreased Ability to Apply Precautions Problem Solving Ability Unable to Identify Errors Needs Assist to Identify Solutions Executive Function Ability Unable to Filter Distractions Unable to Organize Plans Unable to Remember Details Cognitive Comments Cognitive Assessment Comments Pt more alert today but distracts self with tangential conversation, requiring redirection. Some perseverative features noted. Pt reports feeling very nervous and RN in to provide her usual Buspar dose which pt states helps her anxiety. Pt able to recall 3/3 lumbar spine precautions today but still needs mod to max verbal cues to apply them during functional tasks. Improved insight today as pt now realizes she is not safe to be home alone. M7 OT- IP Mobility and Balance Start: 01/16/19 16:34 Freq: Status: Active Protocol: Document 01/17/19 13:59 PJM (Rec: 01/17/19 15:28 PJ [email or web address]) OT-Transfer Assessment Sit to and From Stand Sit to and from Stand Minimal Assistance Transfers Transfer Ability Contact Guard Assistance Technique Transfer Destination Chair Transfer Technique Stand Step Pivot Devices Transfer Assistive Devices Gait Belt Front Wheeled Walker Comments Mobility Comments needs mod verbal cues to avoid turning around wehn too far from chair and to trun completely before sitting down OT- Gait Assessment Gait Gait Assistance Required: Contact Guard Assist Distance (Feet) 20 Assistive Devices Assistive Device Gait Belt Front Wheeled Walker Comments Gait Ability Comments close CGA for safety as pt has difficulty advancing LLE OT- Balance Assessment Sitting Balance and Reactions Static Sitting Balance Ability Good Standing Balance and Reactions Static Standing Balance Ability Good Dynamic Standing Balance Ability Fair M9 OT- IP Assessment and Plan Start: 01/16/19 16:34 Freq: Status: Active Protocol: Document 01/17/19 13:59 PJM (Rec: 01/17/19 15:28 [facility] [email or web address]) OT Summary Assessment and Plan Potential Rehabilitation Potential Good Summary OT Impairments Pain Strength Balance Functional Cognition Functional Mobility Grooming Dressing Toileting Bathing Toilet Transfers Shower Transfers Progress Towards Goals Progressing Toward Goals Assessment Summary Pt making daily progress but still needs significant assist with basic self care such as lower body dressing and has limited activity tolerance for ambulation and standing tasks due to low back pain. She has high anxiety overlay which affects her attention/ concentration and problem solving abilities. Pt recalling lumbar spine precautions today but still has difficulty applying them during functional tasks. Pt now demonstrating insight that it is not safe for her to return home alone at present and daughter cannot provide 24 hr assist when pt's caregiver not present. Recommend SNF at d/c for further rehab. Goals Self-Feeding Goal Independent Grooming Goal Standby Assistance Dressing Goal Minimal Assistance Toileting Goal Minimal Assistance Bathing Goal Moderate Assistance Toilet Transfer Goal Minimal Assistance Shower Transfer Goal Minimal Assistance Patient/Caregiver Education Goal Demonstrate Post-Op Precautions Demonstrate Energy Conservation and Pacing Days to Meet Goals 5 Frequency of Treatment Frequency Of Treatment Once a Day Treatment Plan OT Treatment Plan ADL Training Functional Mobility Patient/Family Education Discharge Planning Discharge Recommendations OT Discharge Recommendations SNF Rehab
--- NOTE | 2019-01-17 14:20 | CM.DPNOTE ---
DCP/Continued: Reviewed chart. Received verbal referral from therapy and they currently recommend SNF for rehab at time of d/c. Met with patient today. Patient much more alert and oriented today. Patient provided with SNF list and first choice is [facility]. Asked SHAUN/Clary to fax clinicals to facility for review. PASRR completed. P: [facility] evaluating for admit. JULIA Krueger
--- NOTE | 2019-01-17 14:40 | PT.IPTN ---
Current Diagnoses Other spondylosis with radiculopathy, lumbar region (01/15/19) Spinal stenosis, lumbar region without neurogenic claudication (01/15/19) Spinal stenosis, lumbar region with neurogenic claudication (01/15/19) Arthrodesis status (01/15/19) Surgery Performed Operation Date: 01/15/19 07:45 Actual Procedures p L2-3,L3-4 TLIF,L4-5,L5-S1 HWR,Explor fusion,Repeat Laminectomy, Reinsertion HWR L2-3,L3-4,L4-5,L5-S1 PSF w/Instru.(Not Applicable) - Angie Bhatt MD Physical Therapy Treatment Note M2 PT-IP Current Condition Start: 01/16/19 13:50 Freq: NEEDED Status: Active Protocol: Document 01/16/19 13:00 AB (Rec: 01/16/19 14:12 AB [id number]) Physical Therapy Current Condition Current Condition Evaluation Date 01/16/19 Treatment Diagnosis s/p L2-4 fusion L4-S1 lami; difficulty in walking Onset Date 01/15/19 Precautions Lumbar Precautions Log Roll No Twisting Limit Bending Lifting Restriction of 10 lbs Gait Belt above Incisional Area Other Precautions falls M3 PT-IP Subjective Start: 01/16/19 13:50 Freq: NEEDED Status: Active Protocol: Document 01/17/19 14:30 GGD (Rec: 01/17/19 14:40 GGD [email or web address]) Subjective Physical Therapy Visit Type Type Treatment Note Visit Start Time 14:05 Visit Stop Time 14:30 Total Visit Minutes 25 Number of PRINTED CIRCUIT BOARD PCB DRAFTSMAN Visits 2 Physical Therapy Visit Comments Patient Comments Pt states she would like to go back to bed. M4 PT-IP Mobility and Gait Start: 01/16/19 13:50 Freq: NEEDED Status: Active Protocol: Document 01/17/19 14:30 GGD (Rec: 01/17/19 14:40 GGD [email or web address]) PT-Bed Mobility Assessment Sit to Supine Sit to Supine Maximum Assistance 1 Person Assistance Bedrails Scooting Scooting to Edge of Bed Minimal Assistance PT-Transfer Assessment Sit to and From Stand Sit to and from Stand Minimal Assistance 1 Person Assistance Use of Upper Extremities Equipment Transfer Assistive Device Gait Belt Front Wheeled Walker Orthotic/Prosthetic Devices or Brace: No Transfers Transfer Destination Bed Transfer Ability Level of Assist Moderate Assistance 1 Person Assistance Use of Upper Extremities Gait Assessment Gait Gait Assistance Required: Minimum Assistance 1 Person Assist Distance (Feet) 30 Able to Maintain Weight Bearing Status Yes During Gait Assistive Devices Assistive Device Gait Belt Front Wheeled Walker Orthotic/Prosthetic Devices or Brace: No Gait Deviations General Gait Pattern Antalgic Decreased Stride Length Decreased Feet Clearance Step-to Gait Factors Limiting Gait Function Factors Limiting Gait Function Decreased Activity Tolerance Decreased Sensation Decreased Strength Difficulty Following Directions Pain Poor Balance Poor Safety Awareness M5 PT-IP Objective Assessments Start: 01/16/19 13:50 Freq: NEEDED Status: Active Protocol: Document 01/16/19 13:00 AB (Rec: 01/16/19 14:12 AB [id number]) Orientation Orientation/Cognition Level of Alertness Confusional State Orientation Name Situation Language Function Ability Hard of Hearing Safety Awareness Decreased Safety Awareness Memory Description Short Term Impaired Overhead Irrigator Impaired Gross Range of Motion Lower Extremity ROM Assessment Bilaterally Impaired Impairments B ankle DF tightness Strength Lower Extremity Strength Assessment Bilaterally Impaired Comments Strength Comments LLE: 3+/5 RLE 4-/5 M6 PT-IP Treatment Start: 01/16/19 13:50 Freq: NEEDED Status: Active Protocol: Document 01/17/19 14:30 GGD (Rec: 01/17/19 14:40 GGD [email or web address]) Physical Therapy Treatment Education Education Provided Precautions Safety M7 PT-IP Assessment and Plan Start: 01/16/19 13:50 Freq: NEEDED Status: Active Protocol: Document 01/17/19 14:30 GGD (Rec: 01/17/19 14:40 GGD [email or web address]) PT Summary Assessment and Plan Summary Assessment Summary Pt needed max A for bed mobility. She need min A for FWW management and cues for step length and safety. She would benefit from SNF rehab to improve functional mobility . Frequency of Treatment Frequency Of Treatment Twice a Day Treatment Plan Physical Therapy Treatment Plan Bed Mobility Training Transfer Training Gait Training Therapeutic Exercise Balance Retraining Post Op Education Discharge Planning Hot or Cold Pack Neuromuscular Re-ed Coordination Retraining Manual Therapy Other Recommendations and Next Treatment ambulation Focus Recommendations To Nursing Amount of Assist Needed 1 Person Assist Discharge Recommendations PT Discharge Recommendations SNF Rehab
[2019-01-17 16:00] VITALS: BP 135/80; RESP 16; TEMP 36.2; O2SAT 96
[2019-01-17] MEDS: AMLODIPINE 5 MG TABLET 10 MG PO (17:31)
[2019-01-17] MEDS: FERROUS SULFATE 325 MG TABLET PO (17:32)
[2019-01-17] MEDS: LOVASTATIN 20 MG TABLET PO (17:32)
[2019-01-17] MEDS: CHLORTHALIDONE 25 MG TABLET 12.5 MG PO (17:32)
[2019-01-17 19:44] VITALS: BP 136/85; PULSE 95; RESP 18; TEMP 36.7
[2019-01-17 21:14] VITALS: BP 135/85
[2019-01-17] MEDS: ACETAMINOPHEN 325 MG TABLET 650 MG PO (21:23)
[2019-01-17] MEDS: OXYCODONE IR 5 MG TABLET PO (22:14)
[2019-01-18 00:15] VITALS: BP 143/74; PULSE 88; RESP 19; TEMP 36.4; O2SAT 97
[2019-01-18] MEDS: OXYCODONE IR 5 MG TABLET 10 MG PO ×4 (01:39→12:12)
[2019-01-18 05:28] VITALS: BP 114/69; PULSE 80; RESP 18; TEMP 36.6; O2SAT 96
[2019-01-18 07:30] VITALS: BP 116/77; PULSE 86; RESP 16; TEMP 36.8; O2SAT 95
--- NOTE | 2019-01-18 07:41 | PM.DS.1 ---
History of Present Illness Date Patient Seen: 01/18/19 Chief complaint: [id number] Narrative: Patient is seen bedside postop day 3 status post L2-3, L3-4 posterolateral and posterior interbody fusion with L4-S1 posterior segmental instrumentation removal, and L2-3, L3-4, L4-5, L5-S1 posterior segmental instrumentation with pedicle screw placement and L4-5 posterolateral fusion. Patient feels better today, would like to go to SNF. She states that her pain is better controlled. She denies N/V, SOB, and CP. She denies any numbness/tingling in the BLE. Discharge Providers Date of admission: 01/15/19 06:15 Discharge Date: 01/18/19 Primary care physician: Justine Martinez PA-C Consults: 01/16/19 09:37 Consult to Occupational Therapy Evaluate & Treat Comment: Physician Instructions: Evaluate and treat Consult to Physical Therapy Evaluate & Treat Comment: Physician Instructions: Evaluate and Treat Discharge provider: Nell Mckeon PA-C Summary Discharge Diagnosis: 1. L2-3, L3-4, L4-5, L5-S1 spinal stenosis 2. L2-3, L3-4, L4-5, L5-S1 spondylosis with radiculopathy 3. Hx of L4-5, L5-S1 fusion with hardware loosening Hospital Course: Patient admitted to the hospital on 01/15/19 s/p L2-3, L3-4 posterolateral and posterior interbody fusion with L2-3, L3-4 posterior interbody cage placement, L4-S1 posterior segmental instrumentation removal, L4-5, L5-S1 revision laminectomy with exploration of fusion, L2-3, L3-4, L4-5, L5-S1 posterior segmental instrumentation with pedicle screw placement and L4-[address] Bhatt. Patient tolerated the procedure well with no major complications. They were transferred to the acute care floor where they were placed on the standard lumbar fusion post-operative pathway and protocol. They were seen by physical therapy who recommended that they be discharged to a subacute rehab facility. They were stable and ready for discharge to [facility] on 01/18/19. Status at Discharge Cognitive/behavioral status at discharge: at baseline, oriented Functional status at discharge: uses cane/walker Overall status at discharge: patient is progressing back to baseline Time Spent with Patient Less than 30 minutes Exam Vital Signs (past 8 hours): - 01/18/19 00:15 01/18/19 05:28 Temperature 97.6 F 97.9 F Pulse Rate 88 80 Respiratory Rate 19 18 Blood Pressure 143/74 H 114/69 Pulse Oximetry 97 96 Oxygen Delivery Method Room Air Oxygen Flow Rate 0 Narrative Exam Narrative: Well-developed, well-nourished, no acute distress. Alert and oriented to person, place, and time. Dressing on lumbar spine is clean, dry, and intact with no signs of drainage. Minimal erythema and generalized swelling around the surgical site. Neurovascularly intact in bilateral lower extremities with soft and compressible calves. Range of motion intact bilateral lower extremities. Discharge Plan Discharge Plan Patient Disposition: SNF Transfer to: [facility] Under care of provider: Facility provider I certify the postop hospital prison care is medically necessary on a continuing basis for any conditions for which he/ she received care during this hospitalization.: Yes The receiving facility has agreed to accept transfer and provide medical treatment.: Yes Discharge Med Rec/Prescriptions Prescriptions: New acetaminophen 325 mg Tablet 650 mg PO Q6HR PRN (Reason: Pain, Mild (1-3)) Qty: 0 RF: 0 docusate sodium 100 mg Capsule 100 mg PO BID Qty: 0 RF: 0 oxycodone 5 mg Tablet 5 mg PO Q4-6H PRN (Reason: Pain, Moderate (4-6)) Qty: 10 RF: 0 Continued gabapentin [Neurontin] 600 MG tablet 400 mg PO BID Qty: 0 RF: 0 carvedilol [Coreg] 25 MG tablet 25 mg PO BID Qty: 0 RF: 0 lovastatin 20 MG tablet 20 mg PO HS Qty: 0 RF: 0 benazepril 40 MG tablet 20 mg PO BID Qty: 0 RF: 0 metformin 1,000 MG tablet 500 mg PO BID Qty: 0 RF: 0 buspirone 5 MG tablet 5 mg PO TID Qty: 0 RF: 0 diphenhydramine HCl [Benadryl Allergy] 25 MG tablet 25 mg PO Q6HP PRN (Reason: Seasonal allergies) Qty: 0 RF: 0 acetaminophen [Tylenol Extra Strength] 500 MG tablet 650 tab PO QDAYP PRN (Reason: pain) Qty: 0 RF: 0 chlorthalidone 25 mg Tablet 12.5 mg PO QPM RF: 0 amlodipine 10 mg Tablet 10 mg PO QPM RF: 0 mirabegron 25 mg Tablet Extended Release 24 Hr 25 mg PO DAILY RF: 0 dulaglutide 0.75 mg/0.5 mL Pen Injector 0.75 mg SUBCUT QWEEK RF: 0 ferrous sulfate 325 mg (65 mg iron) Tablet 325 mg PO DAILY RF: 0 Discontinued aspirin 81 MG tablet,delayed release (DR/EC) 81 mg PO QDAY Qty: 0 RF: 0 hydrocodone-acetaminophen 5-325 mg Tablet 1 tab PO Q12H RF: 0 Follow up/Referrals: Angie Bhatt MD [Physician] - (Follow up in 2 weeks' at the office at your previously scheduled appointment.) Discharge Health Status Multidrug resistant organism: No MDRO Provider Discharge Instructions Diet: Carb-consistent/Diabetic Activity: Weightbearing as tolerated Cold/Heat Therapy: Apply ice 20 minutes at a time to surgical site at least hourly while awake Skin/Wound/Dressing Care Report to your healthcare provider any signs of infection, such as:: chills, fever, night sweats, increased pain, unusual drainage and unusual redness Dressing: Keep dressing clean, dry, and intact. May shower with it in place but no soaking. Special Rehabilitation Services Reason for rehabilitation: Post-operative therapy Rehab type: Physical therapy and Occupational therapy Restrictions to mobility: No bending, lifting greater than 10 lbs, or twisting lumbar spine Visit Report/Discharge Packet Instructions: DI for Transforaminal Lumbar Interbody Fusion Stand Alone Forms: Surgery Discharge Discharge Data Primary Care Provider: Justine Martinez Attending Provider: Angie Bhatt Admit Date/Time: 01/15/19 06:15 Quality VTE Deep Vein Thrombosis/Pulmonary Embolism Present on Admission: No
[2019-01-18] MEDS: BENAZEPRIL 20 MG TABLET PO (08:48)
[2019-01-18] MEDS: DOCUSATE 100 MG CAPSULE PO (08:49)
[2019-01-18] MEDS: CARVEDILOL 25 MG TABLET PO (08:49)
[2019-01-18] MEDS: BUSPIRONE 5 MG TABLET PO (08:50)
[2019-01-18] MEDS: METFORMIN HCL 500 MG TABLET PO (08:50)
[2019-01-18] MEDS: GABAPENTIN 400 MG CAPSULE PO (08:52)
--- NOTE | 2019-01-18 10:25 | PT.IPTN ---
Current Diagnoses Other spondylosis with radiculopathy, lumbar region (01/15/19) Spinal stenosis, lumbar region without neurogenic claudication (01/15/19) Spinal stenosis, lumbar region with neurogenic claudication (01/15/19) Arthrodesis status (01/15/19) Surgery Performed Operation Date: 01/15/19 07:45 Actual Procedures p L2-3,L3-4 TLIF,L4-5,L5-S1 HWR,Explor fusion,Repeat Laminectomy, Reinsertion HWR L2-3,L3-4,L4-5,L5-S1 PSF w/Instru.(Not Applicable) - Angie Bhatt MD Physical Therapy Treatment Note M2 PT-IP Current Condition Start: 01/16/19 13:50 Freq: NEEDED Status: Active Protocol: Document 01/16/19 13:00 AB (Rec: 01/16/19 14:12 AB [id number]) Physical Therapy Current Condition Current Condition Evaluation Date 01/16/19 Treatment Diagnosis s/p L2-4 fusion L4-S1 lami; difficulty in walking Onset Date 01/15/19 Precautions Lumbar Precautions Log Roll No Twisting Limit Bending Lifting Restriction of 10 lbs Gait Belt above Incisional Area Other Precautions falls M3 PT-IP Subjective Start: 01/16/19 13:50 Freq: NEEDED Status: Active Protocol: Document 01/18/19 10:25 GGD (Rec: 01/18/19 12:08 GGD [email or web address]) Subjective Physical Therapy Visit Type Type Treatment Note Visit Start Time 10:00 Visit Stop Time 10:25 Total Visit Minutes 25 Number of CIRCULATION DIRECTOR Visits 3 Physical Therapy Visit Comments Patient Comments Pt states she would like to go back to bed. Therapy Pain Assessment Pain When Pain Assessed At Rest Pain Present Pain Present Pain Reported Location Back Intensity 5 Scale Used Numeric (1 - 10) M4 PT-IP Mobility and Gait Start: 01/16/19 13:50 Freq: NEEDED Status: Active Protocol: Document 01/18/19 10:25 GGD (Rec: 01/18/19 12:08 GGD [email or web address]) PT-Bed Mobility Assessment Sit to Supine Sit to Supine Maximum Assistance 1 Person Assistance Bedrails Scooting Scooting to Edge of Bed Minimal Assistance PT-Transfer Assessment Sit to and From Stand Sit to and from Stand Minimal Assistance 1 Person Assistance Use of Upper Extremities Equipment Transfer Assistive Device Gait Belt Front Wheeled Walker Orthotic/Prosthetic Devices or Brace: No Transfers Transfer Destination Bed Transfer Ability Level of Assist Moderate Assistance 1 Person Assistance Use of Upper Extremities Gait Assessment Gait Gait Assistance Required: Minimum Assistance 1 Person Assist Distance (Feet) 40 Able to Maintain Weight Bearing Status Yes During Gait Assistive Devices Assistive Device Gait Belt Front Wheeled Walker Orthotic/Prosthetic Devices or Brace: No Gait Deviations General Gait Pattern Antalgic Decreased Stride Length Decreased Feet Clearance Step-to Gait Factors Limiting Gait Function Factors Limiting Gait Function Decreased Activity Tolerance Decreased Sensation Decreased Strength Difficulty Following Directions Pain Poor Balance Poor Safety Awareness M5 PT-IP Objective Assessments Start: 01/16/19 13:50 Freq: NEEDED Status: Active Protocol: Document 01/16/19 13:00 AB (Rec: 01/16/19 14:12 AB [id number]) Orientation Orientation/Cognition Level of Alertness Confusional State Orientation Name Situation Language Function Ability Hard of Hearing Safety Awareness Decreased Safety Awareness Memory Description Short Term Impaired Senior Living Impaired Gross Range of Motion Lower Extremity ROM Assessment Bilaterally Impaired Impairments B ankle DF tightness Strength Lower Extremity Strength Assessment Bilaterally Impaired Comments Strength Comments LLE: 3+/5 RLE 4-/5 M6 PT-IP Treatment Start: 01/16/19 13:50 Freq: NEEDED Status: Active Protocol: Document 01/18/19 10:25 GGD (Rec: 01/18/19 12:08 GGD [email or web address]) Physical Therapy Treatment Education Education Provided Precautions Safety M7 PT-IP Assessment and Plan Start: 01/16/19 13:50 Freq: NEEDED Status: Active Protocol: Document 01/18/19 10:25 GGD (Rec: 01/18/19 12:08 GGD [email or web address]) PT Summary Assessment and Plan Summary Assessment Summary Pt needed less cues for gait pattern. She did need max a for bed mobility. She had increase in pain with mobility . She would be from SNF rehab. Frequency of Treatment Frequency Of Treatment Twice a Day Treatment Plan Physical Therapy Treatment Plan Bed Mobility Training Transfer Training Gait Training Therapeutic Exercise Balance Retraining Post Op Education Discharge Planning Hot or Cold Pack Neuromuscular Re-ed Coordination Retraining Manual Therapy Other Recommendations and Next Treatment ambulation Focus Recommendations To Nursing Amount of Assist Needed 1 Person Assist Discharge Recommendations PT Discharge Recommendations SNF Rehab
--- NOTE | 2019-01-18 11:10 | CM.DPNOTE ---
DC Note: DC order for SNF in place; [employer] and this [employer] coordinated details this morning for DC to [facility]. Notified dtr Kathya re: DC and acceptance from [facility], she remains aware and agreeable to plan. Completed PASRR, signed med list, and additional DC ppk faxed to [facility] and [facility] staff arranged cabulance p/u for 1430. Notified ZORAN Dickey and dtr Kathya w/p/u time. P: DC to [facility] today via cabulance. Aaliyah Patel, [employer]
[2019-01-18 12:00] VITALS: BP 129/73; PULSE 86; RESP 18; TEMP 36.6; O2SAT 93
[2019-01-18] MEDS: MAGNESIUM HYDROXIDE 30 ML UDC PO (12:26)
== END 2019-01-18 14:10 | DRG 454 ==
PROVIDERS: Admitting Provider Orthopaedic Surgery Orthopaedic Surgery of the Spine; PCP Physician Assistant; Visit Provider Orthopaedic Surgery Orthopaedic Surgery of the Spine
PROC: 0SG10AJ Fusion of 2 or more Lumbar Vertebral Joints with Interbody Fusion Device, Posterior Approach, Anterior Column, Open Approach (ICD-10-PCS; principal; 2019-01-15 07:45)
DX: M48.061 Spinal stenosis, lumbar region without neurogenic claudication (principal); M96.0 Pseudarthrosis after fusion or arthrodesis; M47.26 Other spondylosis with radiculopathy, lumbar region; M43.17 Spondylolisthesis, lumbosacral region; I10 Essential (primary) hypertension; E11.9 Type 2 diabetes mellitus without complications; Z79.84 Long term (current) use of oral hypoglycemic drugs; M48.07 Spinal stenosis, lumbosacral region; F03.90 Unspecified dementia, unspecified severity, without behavioral disturbance, psychotic disturbance, mood disturbance, and anxiety
CPT/HCPCS: 72100; 76000; 82962; 94760; 97116; 97162; 97166; 97530; 97535; C1776; C9290; J0330; J0690; J1100; J1170; J2250; J2405; J2704; J3010